=== PATIENT | male | born 1965 | race Caucasian/White ===

== ENCOUNTER 2024-05-25 09:27 | Outpatient (CLI) | payer OTHER, SELFPAY ==
--- NOTE | 2024-05-25 09:32 | US_ITS ---
FINAL REPORT TECHNIQUE: Limited sonographic imaging of the left inguinal region was obtained. CLINICAL HISTORY: LT SIDED PAIN FINDINGS: There is a 2.9 x 1.5 cm abnormality which may represent lymph node versus hernia. IMPRESSION: Lymph node versus hernia in the left inguinal region. Recommend CT for further evaluation. Reviewed, Interpreted and Dictated by Ab Lawson MD Transcribed by Leah James Authenticated and . [facility]
== END 2024-05-25 23:59 | disposition home or self-care (01) ==
LOC: RAD 09:27
PROVIDERS: PCP Family Medicine; Visit Provider Family Medicine
DX: R10.32 Left lower quadrant pain (principal)
CPT/HCPCS: 76882

== ENCOUNTER 2024-06-04 06:51 | Outpatient (CLI) | payer OTHER, SELFPAY ==
--- NOTE | 2024-06-04 07:00 | CT_ITS ---
FINAL REPORT TECHNIQUE: Axial images through the abdomen and pelvis were performed without contrast.This study was performed with techniques to keep radiation doses as low as reasonably achievable, (ALARA). Individualized dose reduction techniques using automated exposure control or adjustment of mA and/or kV according to the patient's size were employed. CLINICAL HISTORY: LT INGUINAL PAIN FINDINGS: ABDOMEN: The lung bases are clear. The heart size is normal. Limited images of the liver are unremarkable. The spleen is normal. No adrenal mass is identified. The aorta is normal in caliber. There is no significant free fluid or adenopathy. There is no nephrolithiasis. There is no hydronephrosis. PELVIS: The appendix is normal. The urinary bladder is unremarkable. There is a left inguinal hernia containing fat. There is no significant free fluid or adenopathy. IMPRESSION: No hydronephrosis or nephrolithiasis. Left inguinal hernia containing fat. Reviewed, Interpreted and Dictated by Casper Winn III, MD Transcribed by Leah James Authenticated and [facility]
== END 2024-06-04 23:59 | disposition home or self-care (01) ==
LOC: RAD 06:51
PROVIDERS: PCP Family Medicine; Visit Provider Family Medicine
DX: R10.32 Left lower quadrant pain (principal)
CPT/HCPCS: 74176

== ENCOUNTER 2024-07-15 11:56 | Outpatient (CLI) | payer OTHER, SELFPAY ==
--- NOTE | 2024-07-15 12:27 | ECG_ITS ---
APPROVED REPORT Exam: Resting ECG HR:67 bpm ECG Measurements Heart Rate 67 AXES MT 156 P 71 QRSd 90 QRS 67 QT 407 T 60 QTc 422 Conclusion SINUS RHYTHM NORMAL ECG UNCONFIRMED REPORT Electronically signed by : Monatna Morales MD 07/16/2024 16:09:22
[2024-07-15 12:36] VITALS: BMI 24.0
[2024-07-15 14:46] LABS: Basophils # 0.1 K/mm3 (0-0.2); Basophils % 0.6 % (0.1-2.0); Eosinophils # 0.3 K/mm3 (0.0-0.4); Eosinophils % 3.4 % (0.1-12.0); Hematocrit 41.8 % (42.0-52.0); Hemoglobin 14.8 g/dL (14.1-18.0); Lymphocytes # 2.6 K/mm3 (0.7-4.5); Lymphocytes % 30.8 % (10-50); Mean Corpuscular HGB Conc 35.5 g/dL (31.8-35.4); Mean Corpuscular Hemoglobin 31.9 pg (27.0-31.2); Mean Corpuscular Volume 90.1 fl (80-94); Mean Platelet Volume 8.3 fl (7.4-10.4); Monocytes # 0.5 K/mm3 (0.1-1.0); Monocytes % 6.1 % (1.7-9.3); Neutrophils % 59.1 % (37.0-80.0); Platelet Count 403 K/mm3 (142-424); Red Blood Count 4.64 M/mm3 (4.60-6.20); Red Cell Distribution Width 12.7 % (11.5-17.5); White Blood Count 8.4 K/mm3 (4.8-10.8)
[2024-07-15 14:56] LABS: Anion Gap 4.3 mEq/L (5-15); Blood Urea Nitrogen 14 mg/dl (9-20); Calcium 9.8 mg/dl (8.4-10.2); Carbon Dioxide 30 mmol/L (22.0-30.0); Chloride 106 mmol/L (98-107); Creatinine Clearance Estimated 100 mL/min (50-200); Estimated Glomerular Filt Rate 87 ml/min (>60); GFR (African American) 105 ML/MIN (>60); Glucose 70 mg/dl (74-100); Potassium 4.3 mmoL/L (3.5-5.1); Sodium 136 mmol/L (136-145)
== END 2024-07-15 23:59 | disposition home or self-care (01) ==
LOC: PREOP 11:57
PROVIDERS: Nurse Anesthetist, Certified Registered; PCP Family Medicine; Visit Provider Surgery
DX: Z01.810 Encounter for preprocedural cardiovascular examination (principal); Z01.812 Encounter for preprocedural laboratory examination
CPT/HCPCS: 80048; 85025; 93005

== ENCOUNTER 2024-07-20 06:03 | Day surgery (SDC) | payer OTHER, SELFPAY ==
[2024-07-15 12:13] VITALS: BMI 24.0
[2024-07-20] VITALS (10 sets, daily range): BP systolic 119–156; BP diastolic 62–87; PULSE 67–97; RESP 15–18; TEMP 36.2–36.7; O2SAT 95–100
[2024-07-20] MEDS: LACTATED RINGERS 1000ML 1,000 ML 25 ML IV (06:27)
--- NOTE | 2024-07-20 07:01 | EXP.ANES.CKL ---
[facility] Disclaimer: The information contained in this section may have been updated after the patient was seen, as this information can be updated by other users. 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 Travel in the last 8 weeks: None household members: family housing: house [facility] Anesthesia Checklist Patient Identification Patient Identification: Arm Band Structural Data Admitted From: Home Planned Operative Procedure/s: Open Left Inguinal Hernia Repair Consent for Planned Operative Procedure(s) Verified: Yes Verified Documents: Surgical Consent and History and Physical NPO Status Verified Time NPO: 00:00 Additional verifications Anesthesia Reactions: No Hx Blood Transfusions: No Blood Transfusion Reaction: No Airway Assessment Mallampati Score:: Class II C-Spine Mobility Assessed: Yes TMJ Mobility Assessed: Yes Dentition: Good Dentition (Pt states that he has a loose upper left cap) Neurological Assessment Level of Consciousness: Awake, Alert and Appropriate Anesthesia Plan Anesthesia Risk discussed: Yes Anesthesia Plan: Verified ASA Class: II Anesthesia Type: General
[2024-07-20] MEDS: CEFAZOLIN SODIUM 2 GM in 0.9 % SODIUM CHLORIDE 100 ML IV (07:10)
[2024-07-20] MEDS: LIDOCAINE 1% 20ML MDV 20 ML (07:30)
[2024-07-20] MEDS: ROPIVACAINE 0.5% 30ML VIAL 150 MG (07:30)
--- NOTE | 2024-07-20 08:58 | P.OP_ITS ---
Date of procedure: 07/20/24 Pre-op Diagnosis:: Left inguinal hernia Post-op Diagnosis:: Same Procedure performed:: Open repair of left inguinal hernia with placement of large size Bard PerFix mesh plug and onlay mesh Surgeon:: Casper Verdugo MD JIG MILL OPERATOR:: Suellen Wolfe Anesthesia: GETA Estimated blood loss (mL): 15 Operative findings:: He had a moderately large indirect hernia. Likely sliding-type. Operative note:: Consent was obtained and patient was taken the operating room. He was given preoperative intravenous antibiotics. In the operating room he was placed in a supine position. General anesthesia was induced. Shaffer catheter was placed. Abdomen and perineum were prepped and draped in the standard surgical fashion. Oblique incision was made in the left inguinal area superior to landmarks identified the inguinal ligament. Dissection was carried down through subcutaneous tissues and Shantelle's fascia using electrocautery. External oblique muscle was cleaned free and opened along the length of its fibers. Exposure was achieved. The underlying ilioinguinal nerve was identified and dissected free and preserved. Cord structures were dissected free from the floor of the inguinal canal and encircled with a Vining drain. Dissection was carried out there was some herniated preperitoneal fat along the cord and this was dissected free from the cord. There was what appeared to be potentially herniated portion of colon essentially as a sliding-type hernia. This was dissected free from the cord carefully. Given the potential sliding nature of the hernia preperitoneal fat and possible bowel were reduced. The defect, lateral to the cord, was repaired with a large size prefix mesh plug anchoring it to the transversalis muscle fascia and the shelving edge of the inguinal ligament with a couple of 2- 0 PDS sutures. The onlay mesh was then secured in position suturing it to Rosalio's ligament and along the shelving edge of the inguinal ligament with a running 2-0 PDS suture. It was secured superior medially to the transversalis muscle fascia with interrupted 2-0 PDS horizontal mattress sutures with a few simple interrupted 2-0 PDS. The 2 tails of the mesh were sutured to 1 another with several 2-0 PDS to reconstruct the internal ring. Cord structures and nerve were returned to the normal anatomic position. Irrigation was performed. Local anesthetic was infiltrated deeply and then for inguinal nerve block. External oblique muscle was closed over the cord structures with 2-0 Vicryl. Shantelle's fascia was closed with running 2-0 Vicryl. Skin was closed with 4-0 Monocryl in a running subcuticular fashion. Steri-Strips and dressings were applied. Condition: stable Disposition: PACU Complications:: None immediately apparent
--- NOTE | 2024-07-20 09:09 | P.PNANES_ITS ---
[facility] Anesthesia Record Part I Anesthesia Record I Intake, IV Amount: 950 Hydration: Adequate Estimated blood loss (mL): 10 Urine output (mL): 100 Blood Products used (#): none Blood Pressure: 134/77 SaO2: 95 Pulse Rate: 97 Airway Patency: Patent Respiratory Rate: 16 Temperature: 97.4 F Patient is:: Awake (Talking) and Stable Stable to PACU at:: 09:10
[2024-07-20 09:31] LABS: Microscopic,Cath URINE MICROSCOPIC (MICROSCOPIC)
[2024-07-20 10:15] LABS: Appearance,Urine/Cath CLEAR (Clear); Bilirubin,Cath Negative (Negative); Blood, Urine/Cath Negative (Negative); Color,Urine/Cath YELLOW (Yellow); Glucose,Urine/Cath (UA) Negative (Negative); Ketones,Urine/Cath Negative (Negative); Leukocyte Esterase,Cath Negative (Negative); Nitrate,Cath Negative (Negative); PH,Urine/Cath 6.5 (5.0-8.5); Protein,Urine/Cath Negative (Negative); Urobilinogen,Cath 0.2 EU/dl (0.2)
[2024-07-20 10:25] LABS: Squamous Epithelial Ur./Cath Occasional #/hpf (0-5); WBC,Urine/Cath Occasional #/hpf (0-3)
--- NOTE | 2024-07-20 13:59 | EXP.ANES.II ---
[facility] Anesthesia Record Part II Anesthesia Record Part II Discharge Time: 09:35 Destination: Surgical Day Care (OP Surgery) PACU nurse assessment reviewed?: Yes Patient Condition:: Good Anesthesia Complications:: None Swallowing reflex intact?: Yes Airway Patency: Patent Cyanosis?: No Blood Pressure: 131/76 SaO2: 100 Respiratory Rate: 15 Pulse Rate: 82 Temperature: 97.4 F Mental Status: Alert & Oriented Pain level:: 0 Nausea and/or vomitting:: None Intake, IV Amount: 950 Hydration: Adequate
== END 2024-07-20 09:58 | disposition home or self-care (01) ==
PROVIDERS: PCP Family Medicine; Visit Provider Surgery
PROC: (CPT 49525; principal; 2024-07-20 07:30)
DX: K40.90 Unilateral inguinal hernia, without obstruction or gangrene, not specified as recurrent (principal)
CPT/HCPCS: 49525; 81001; 96374; J3490; J0690; J1100; J1885; J2250; J2405; J3010; J7120

== ENCOUNTER 2025-01-01 14:33 | Outpatient (CLI) | payer SELFPAY ==
--- NOTE | 2025-01-01 14:36 | CT_ITS ---
APPROVED REPORT Sizing Machine Tender: CLINICAL INDICATION Coronary risk evaluation and stratification TECHNIQUE Image Acquisition: A 128 slice MDCT scanner (Websupporta View) was used for data acquisition. A noncontrast coronary calcium scan was performed. A CT attenuation threshold of 130 Hounsfield units (HU) was used for the detection of calcium in contiguous voxels of 1 sq mm in area to be counted as individual lesions. A tube voltage of 120 KVp was used. The patient received no medications prior to the coronary calcium CT. Image Reconstruction Transaxial images were reconstructed at 0.67 mm slide thickness. Data was reviewed interactively on an advanced workstation capable of 2 and 3-dimensional displays in all conventional reconstruction formats, including multiplanar reformations, maximum intensity projections, curved multiplanar reformations, and volume rendered reconstructions. When applicable, selected routine images describing the relevant coronary anatomy and pathology were saved and sent to PACS. Complications None Technical Quality Overall image quality was good. Total DLP (Dose-Length Product) is 179.9 mGy-cm. The reported value represents the total of one or more individual components during the CT acquisition of this date and at this time, and as such, the same value may appear in more than one CT report depending on the interpreting/reporting physicians. COMPARISON None FINDINGS CT Coronary Calcium Scoring LMA (Left Main Artery) = 6 LAD (Left Anterior Descending) = 213 LCX (Left Coronary Circumflex) = 20 RCA (Right Coronary Artery) = 0 Total Calcium Score = 239 using the AJ-130 method. There is no identifiable calcification in the aortic valve, mitral annulus or mitral valve, pericardium, or myocardium. IMPRESSION -Coronary artery calcification is present. -Total Calcium Score (Agatston Score) = 239 using the AJ-130 method. -The observed calcium score of 239 is at 85th percentile for subjects of the same age, sex, and race/ethnicity. The interpretation of the calcium heart score is based on the following continuum*: 0 = no calcified plaque detected (risk of coronary artery disease is very low ??? less than 5%) 1-10 = calcium detected in extremely minimal levels (risk of coronary diseases is still low ??? less than 10%) 11-100 = mild levels of plaque detected with certainty (mild or minimal narrowing of heart arteries is likely) 101-400 = definite,at least moderate levels of plaque detected (relatively high risk of a heart attack within 3-5 years) >401-999 = extensive levels of plaque detected (high risk of heart attack, high levels of vascular disease are present, high likelihood of at least one significant coronary narrowing) *The calcium heart score quantifies the burden of coronary calcification/plaque in the coronary arteries. The calcium heart score does not evaluate the presence or the burden of non-calcified (i.e. soft) plaque. The coronary and cardiac findings of this Coronary Calcium CT were reviewed, reported, and signed by Daniel Velazquez MD ([employer]). Conclusion Electronically signed by : Kaykay Velazquez MD 01/03/2025 22:13:36
== END 2025-01-01 23:59 | disposition home or self-care (01) ==
LOC: RAD 14:33
PROVIDERS: PCP Family Medicine; Visit Provider Family Medicine
DX: Z13.6 Encounter for screening for cardiovascular disorders (principal)
CPT/HCPCS: 75571

== ENCOUNTER 2025-03-25 11:13 | Outpatient (CLI) | payer OTHER, SELFPAY ==
--- OUTSIDE RECORDS SUMMARY | 2024-12-09 05:30 | XMS_ITS ---
Author Organization [facility] Address [address] [place] [phone] Care Team Providers Care Wraparound Facilitator Name Role Phone Mack Zoran Unavailable [phone] Allergies No Known Allergies REASON FOR VISIT 6 months Social History Tobacco Use: Social History Observation Description Date Details (start date - stop date) Former Smoker NA - NA CURRENT TOBACCO USE: Question Answer Notes Are you a: former smoker quit 30 years ag o Encounters Encounter Location Date Provider Diagnosis [facility] [address] [place] [phone] 12/09/2024 Zoran Giron Plan Of Treatment Next Appt Details Provider Name:Zoran Tabares ry, 06/18/2025 10:45:00 AM, [address], [address], [place], [phone], Progress Notes * KATHARINE RAMSEYDOB: [birth year] (59 yo M)Acc No.[id number]:12/09/2024 Progress Notes Patient: KATHARINE THOMAS Provider: Varsha Giron M.D. :1965 A ge:59 Y S ex:Male Date:12/09/2024 Address:[address] [place], [place] [address] Subjective: * Chief Complaints: * 1 . 6 months. * HPI: C ardiology: 59 year old male presents with c/o Blood Pressure Elevated P t here for 6 mo f/u on hypertension, states he is doing well and does not have any concerns. c/o Hyperlipidemia P t is fasting today. * ROS: D ERMATOLOGY: no R petey. n o H ximena. G ASTROENTEROLOGY: no N ausea. n o V omiting. U ROLOGY: no D ifficulty urinating. n o B lood in urine. * Medical History: A sthma, Hypertension, Hyperlipidemia, Sleep Apnea. * Surgical History: C olonoscopy 2017, Hernia Repair 11/2020, Hernia Repair 2011. * Hospitalization/Major Diagno stic Procedure: D enies Past Hospitalization. * Family History: F ather: alive. M other: . High blood pressure- mother and father Heart disease- mother and father cancer- mother and father. * Social History: C URRENT TOBACCO USE: Yes A re you a: f ormer smoker quit 30 years ago. C affeine: yes, frequency: coffee and tea. Marital Status: . Alcohol: yes, beer and mixed drinks. 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 * Allergies: N .K.D.A. Objective: * Vitals: Assessment: Plan: * Treatment: * Images: Billing Information: * Visit Code: * Procedure Codes: * Electronic signature of Yu Giron MD on 03/25/2025 at 11:16 AM EDT Sign off status: Pending * Provider: Varsha Giron M.D. Date: 0 12/09/2024 Generated for Yudelka medina/Tamara/eTkassandrasmitting on: 0 03/25/2025 11:16 AM EDT History and Physical Notes * HPI (History of Present Illness) Category Sub-Category Detail Notes Category Not es Cardiology Blood Pressure Elevated Pt here for 6 mo f/u on hypertension, states he is doing well and does not have any concerns Hyperlipidemia Pt is fasting today
--- OUTSIDE RECORDS SUMMARY | 2024-12-16 06:45 | XMS_ITS ---
[facility] Address [address] [facility] [address] [place] [phone] Care Team Providers Care Paint Supervisor Name Role Phone Zoran Giron Unavailable [phone] Allergies No Known Allergies Results Component Value Reference Range Notes CT Scan : Coronary w/o contr ast (calcium scoring) Reviewed date:01/26/2025 09:35:53 AM Interpretation:Ca score of 239, 85th percentile Performing Lab: Notes/Report: Ca score of 239, 85th percentile REASON FOR VISIT 6 month check Medications Medication SIG (Take, Route, Frequency, Duration) Notes Start Date End Date Status Atorvastatin Calcium 10 MG 1 tab(s) oral ly once a day; Duration: 90 days Active Enalapril Maleate 10 MG 1 tab(s) orally once a day; Duration: 90 days Active Proventil HFA 108 (90 Base) MCG/ACT 2 puff(s) inhaled every 6 hours Active Social History Tobacco Use: Social History Observation Description Date Details (start date - stop date) Former Smoker NA - NA CURRENT TOBACCO USE: Question Answer Notes Are you a: former smoker quit 30 years ag o Vital Signs Blood pressure systolic 130 mm Hg 12/17/19 25 Blood pressure diastolic 72 mm Hg 025 Heart Rate 67 /min 12/16/2024 Height 71 in 12/16/2024 Weight 186.6 lbs 12/16/2024 BMI 26.02 kg/m2 12/16/2024 Encounters Encounter Location Date Provider [facility] [address] [facility] [address] [place] [phone] 12/16/2024 Zoran Giron Primary hypertension I10 ; Mixed hyperlipidemia E78.2 and Encounter for screening for coronary artery disease Z13.6 Assessments Encounter Date Diagnosis (ICD Code) Assessment Notes Treatment Notes Treatment Clinical Notes Section Notes 12/16/2024 Primary hypertension (ICD-10 - I10) 12/16/2024 Mixed hyperlipidemia (ICD-10 - E78.2) 12/16/2024 Encounter for screening for coronary artery disease (ICD-10 - Z13.6) Plan Of Treatment Medication Medication Name Sig Start Date Stop Date Notes Atorvastatin Calcium 10 MG 1 tab(s) oral ly once a day; Duration: 90 days Enalapril Maleate 10 MG 1 tab(s) orally once a day; Duration: 90 days Next Appt Details Follow Up: 6 Months, Reason: Provider Name:Zoran Tabares ry, 06/18/2025 10:45:00 AM, [address], [address], [place], [place], [phone], Progress Notes * WANDY RAMSEYGROVERDOB: [birth year] (59 yo M)Acc No.[id number]:12/16/2024 Progress Notes Patient: KATHARINE THOMAS Provider: Varsha Giron M.D. :1965 A ge:59 Y S ex:Male Date:12/16/2024 Address:[address] [place], [place] [phone] Subjective: * Chief Complaints: * 1 . 6 month check. * HPI: C ardiology: 59 year old [...] yes, beer and mixed drinks. 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 * Medications: T aking Proventil HFA 108 (90 Base) MCG/ACT Aerosol Solution 2 puff(s) inhaled every 6 hours , Taking Enalapril Maleate 10 MG Tablet 1 tab(s) orally once a day , Taking Atorvastatin Calcium 10 MG Tablet 1 tab(s) orally once a day , Medication List reviewed and reconciled with the patient * Allergies: N .K.D.A. Objective: * Vitals: W t: 186.6, Temp: 98.0, BP: 130/72, HR: 67, Nurse: mehdi, Ht: 71, BMI:26.02. * Examination: G eneral Examination: General Appearance: N AD. H eart: R SR. L ungs:?clear to auscultation. P eripheral pulses: n ormal (2+) bilaterally. E xtremities:?no leg edema. Assessment: * Assessment: 1. P rimary hypertension - I10 (Primary) 2 . M ixed hyperlipidemia - E78.2? 3. E ncounter for screening for coronary artery disease - Z13.6 ? Plan: * Treatment: 2. M ixed hyperlipidemia Refill Atorvastatin Calcium Tablet, 10 MG, 1 tab(s), orally, once a day, 90 days, 90, Refills 1.? 3. E ncounter for screening for coronary artery disease I maging: CT Scan : Coronary w/o contrast (calcium scoring) (Performed Date - 01/01/2025) C a score of 239, 85th percentile * Procedure Codes: 3 075F SYST BP GE 130 - 139MM HG, 3078F DIAST BP < 80 MM HG * Follow Up: 6 Months * Images: Billing Information: * Visit Code: 85633 Office Visit, Est Pt., Level 4. * Procedure Codes: 3075F SYST BP GE 130 - 139MM HG. 3078F DIAST BP < 80 MM HG. * Electronic signature of Yu Giron MD on 03/25/2025 at 11:16 AM EDT Sign off status: Pending * Provider: Varsha Giron M.D. Date: 0 12/16/2024 Generated for Yudelka medina/Tamara/Roshniitting on: 0 03/25/2025 11:16 AM EDT History and Physical Notes * HPI (History of Present Illness) Category Sub-Category Detail Notes Category Not es Cardiology Blood Pressure Elevated Pt here for 6 mo f/u on hypertension, states he is doing well and does not have any concerns Hyperlipidemia Pt is fasting today Examination Category Sub-Category Detail Notes Category Not es General Examination Heart: RSR Lungs: clear to auscultatio n Extremities: no leg edema General Appearance: NAD Peripheral pulses: normal (2+) bilatera lly
--- OUTSIDE RECORDS SUMMARY | 2025-01-26 05:35 | XMS_ITS ---
[facility] [address] [facility] [address] [facility] [address] [place] [phone] Care Team Providers Care Replenishment Merchandising Associate Name Role Phone Zoran Giron Unavailable [phone] Reason For Referral Diagnosis 1 Elevated coronary ar robert calcium score (R93.1) Referral Organization [facility] Referring Provider First Name Zoran Referring Provider Last Name Mack Referring Provider Speciality Family Pra ctice Referred Provider Kaykay Velazquez Referred Provider Specialty Cardiovascul ar Disease General Notes Shanika Patterson 2024 07:46:38 AM > faxed to Dr. Velazquez's office Referral Priority Routine REASON FOR VISIT Test results Encounters Encounter Location Date Provider Diagnosis [facility] [address] [facility] [address] [facility] [address] [place] [phone] 01/26/2025 Zoran Giron Elevated coronary artery calcium score R93.1 Assessments Encounter Date Diagnosis (ICD Code) Assessment Notes Treatment Notes Treatment Clinical Notes Section Notes 01/26/2025 Elevated coronary artery calcium score (ICD-10 - R93.1) Plan Of Treatment Referrals Referral Date Details 02/01/2025 02/01/2025Kaykay Next Appt Details Provider Name:Zoran Tabares ry, 06/18/2025 10:45:00 AM, [address] [facility], [address], [place], [phone], Progress Notes * KATHARINE PETERSDOB: [birth year] (59 yo M)Acc No.[id number]:01/26/2025 Patient: KATHARINE THOMAS :1965 A ge:59 Y S ex:Male Address:[address] [place] [address], [place], [address] Subjective: * Chief Complaints: * T est results * Medical History: * Surgical History: * Hospitalization/Major Diagno stic Procedure: * Medications: Objective: Assessment: * Assessment: 1. E levated coronary artery calcium score - R93.1 (Primary) Plan: * Treatment: * Procedure Codes: * true * Date: Generated for Yudelka medina/Tamara/eTkassandrasmitting on: 0 03/25/2025 11:16 AM EDT Consultation Request Notes Referral Date Referring Provider Referred Provider Not es 02/01/2025 Zoran Giron Yaz
--- NOTE | 2025-03-25 | CA_ITS ---
APPROVED REPORT Exam: Exercise Treadmill Technologist: Jesica Cabrera Ht: 5 ft 10 in Wt: 175 lbs BSA: 1.97 m2 Medical History Medications: Albuterol, atorvastatin, enalapril maleate. Stress Test Details Test: Exercise stress testing was performed using a Palmer protocol. HR Resting HR: 68 bpm Max Heart Rate (APMHR): 162.665114 bpm Max HR Achieved: 153 bpm Target HR (85% APMHR): 137.642604 bpm % of APMHR: 94.44 Recovery HR: 96 bpm BP Resting BP: 152.0/85.0 mmHg Max BP: 204.0/69.0 mmHg Recovery BP: 170.0/82.0 mmHg ECG Resting ECG: NSR with NSSRR Wave abnormalities inferiorly Clinical Highest Stage Achieved: III Stress ECG Conclusion Max HR: 153 Max BP: 204/59 METs: 12.1 Test stopped due to: SOA. Symptoms: None. Arrhythmias/Ectopy: None. ST-T Changes: <1.5mm ST Segment changes with exacerbation of baseline inferior abnormalities. Conclusion: Negative stress for chest pain or arrhythmias. Exacerbation of baseline EKG abnormalities. Electronically signed by : Kaykay Velazquez MD 03/27/2025 00:12:19
--- OUTSIDE RECORDS SUMMARY | 2025-03-25 11:17 | XMS_ITS | Patient Health Record ---
[facility] [address] [place] [phone] Care Team Providers Care Cafeteria Clerk Name Role Phone Zoran Giron Unavailable [phone] Allergies No Known Allergies Results Component Value Reference Range Notes CT Scan : Coronary w/o contr ast (calcium scoring) Reviewed date:01/26/2025 09:35:53 AM Interpretation:Ca score of 239, 85th percentile Performing Lab: Notes/Report: Ca score of 239, 85th percentile CT Scan : Abd & Pelvis w/o c ontrast Reviewed date:06/08/2024 03:22:46 PM Interpretation:Left Inguinal hernia containing fat Performing Lab: Notes/Report: Left Inguinal hernia containing fat Glucose (In-House) Reviewed date:06/12/2024 04:17:46 PM Interpretation:101 Normal Performing Lab: Notes/Report: 101 Normal blood glucose 101 74 - 106 mg/dL Glycohemoglobin A1c (in hous e) Reviewed date:06/12/2024 04:18:01 PM Interpretation:5.2 Normal Performing Lab: Notes/Report: 5.2 Normal glycohemoglobin 5.2% 5 - 6.5 % ultrasound : groin left Reviewed date:05/26/2024 10:10:56 AM Interpretation:lymph node vs hernia, recommend CT Performing Lab: Notes/Report: lymph node vs hernia, recommend CT Reason For Referral Diagnosis 1 Left inguinal hernia (K40.90) Referral Organization [facility] Referring Provider First Name Zoran Referring Provider Last Name Mack Referring Provider Speciality Family Pra ctice Referred Provider VIOLA GAN Referred Provider Specialty General Surg camila General Notes Xiomara Head 024 9:08:22 AM > left message for Adilene PATELXiomara 06/09/2024 9:12:53 AM > Jun 18 at 9:00--pt informed Referral Priority Routine Diagnosis 1 Elevated coronary ar robert calcium score (R93.1) Referral Organization [facility] Referring Provider First Name Zoran Referring Provider Last Name Mack Referring Provider Speciality Family Pra ctice Referred Provider Kaykay Velazquez Referred Provider Specialty Cardiovascul ar Disease General Notes Shanika Patterson 2024 07:46:38 AM > faxed to Dr. Velazquez's office Referral Priority Routine Medications Medication SIG (Take, Route, Frequency, Duration) Notes Start Date End Date Status Atorvastatin Calcium 10 MG 1 tab(s) oral ly once a day; Duration: 90 days Active Enalapril Maleate 10 MG 1 tab(s) orally once a day; Duration: 90 days Active Proventil HFA 108 (90 Base) MCG/ACT 2 puff(s) inhaled every 6 hours Active Immunizations Vaccine Route Administration Date Status Comme nts Fluzone Quad (6months&older) IM Intramuscular 06/10/2024 Administered Social History Tobacco Use: Social History Observation Description Date Details (start date - stop date) Former Smoker NA - NA CURRENT TOBACCO USE: Question Answer Notes Are you a: former smoker quit 30 years ag o Problems Problem Type SNOMED Code ICD Code Onset Dates Problem Status W/U Status Risk Notes Problem Mixed hyperlipidemia (208805591) Mixed hyperlipidemia (E78.2) Active confirmed Problem Mild intermittent asthma (547969152) Mild intermittent asthma without complication (J45.20) Active confirmed Problem Primary hypertension (02763095) Primary hypertension (I10) Active confirmed Vital Signs Heart Rate 67 /min 12/16/2024 Blood pressure diastolic 72 mm Hg 12/16/2024 Height 71 in 12/16/2024 Blood pressure systolic 130 mm Hg 12/16/2024 Weight 186.6 lbs 12/16/2024 BMI 26.02 kg/m2 12/16/2024 Encounters Encounter Location Date Provider Diagnosis [facility] [address] [place] [id number] 05/20/2024 Zoran Giron Left inguinal pain R 10.32 [facility] [address] [place], [place] [id number] 06/10/2024 Zoran [place] Primary hypertension I10 ; Mixed hyperlipidemia E78.2 and IFG (impaired fasting glucose) R73.01 [facility] [address] [place], [place] [id number] 12/16/2024 Zoran [place] Primary hypertension I10 ; Mixed hyperlipidemia E78.2 and Encounter for screening for coronary artery disease Z13.6 [facility] [address] [place], [place] [id number] 05/26/2024 Zoran [place] Left inguinal pain R 10.32 [facility] [address] [place], [place] [id number] 06/02/2024 Zoran [place] [facility] [address] [place], [place] [id number] 06/08/2024 Zoran [place] Left inguinal hernia K40.90 [facility] [address] [facility] [address] [place], [place] [id number] 01/26/2025 Zoran [place] Elevated coronary ar robert calcium score R93.1 Assessments Encounter Date Diagnosis (ICD Code) Assessment Notes Treatment Notes Treatment Clinical Notes Section Notes 05/20/2024 Left inguinal pain (ICD-10 - R10.32) Patient likely has an inguinal hernia 05/26/2024 Left inguinal pain (ICD-10 - R10.32) 06/08/2024 Left inguinal hernia (ICD-10 - K40.90) 06/10/2024 Mixed hyperlipidemia (ICD-10 - E78.2) 06/10/2024 Primary hypertension (ICD-10 - I10) 12/16/2024 Mixed hyperlipidemia (ICD-10 - E78.2) 12/16/2024 Primary hypertension (ICD-10 - I10) 01/26/2025 Elevated coronary artery calcium score (ICD-10 - R93.1) 12/16/2024 Encounter for screening for coronary artery disease (ICD-10 - Z13.6) 06/10/2024 IFG (impaired fasting glucose) (ICD-10 - R73.01) Plan Of Treatment Next Appt Details Provider Name:Zoran Tabares ry, 06/18/2025 10:45:00 AM, [address], [place], [id number], Insurance Providers Payer Name Payer Address Payer Phone Subscriber Number Group Number Insured Name Patient Relationship to Insured Coverage Start Date Coverage End Date [employer] [address] [place] [id number] KATHARINE RAMSEY Self - patient is the insured Medical (General) History Medical History History ICD Code Asthma Hypertension Hyperlipidemia Sleep Apnea Surgical History Surgery Date(Month/Year) Colonoscopy 2017 Hernia Repair 11/2020 Hernia Repair 2011 Hospitalization History Reason Date(Month/Year)
--- NOTE | 2025-03-25 11:30 | NM_ITS ---
APPROVED REPORT Exam: Nuclear Stress Test Indication: cta abnormal Patient Location: Outpatient Stress Tech: Jesica Muñoz [place] Tech:PETROAN [place] RT(R)(N) Ht: 5 ft 10 in Wt: 166 lbs HR: 68 bpm BP: 152/85 mmHg BSA: 1.93 m2 TID: 1.06 BMI: 23.8 History: cta abnormal Procedure: Patient exercised on Palmer protocol 12 minutes and sec, resting heart rate 68 bpm, resting blood pressure 152/85 mmHg, with exercise maximum heart rate achived was 153 bpm which is 94 % of the maximum predicted heart rate and blood pressure was 204/69 mmHg. Test was stopped due to fatigue. Patient denied any complaint of chest pain. Patient has Average exercise capacity, achieved 12.1 METs of workload on treadmill, the blood pressure response to exercise was Exaggerated. Cardiac Stress and Resting SPECT Images: Cardiac Stress and Resting SPECT images were obtained using technetium 99m Myoview 32.3 mCi stress and 10.30 mCi at rest. Resting and stress imaging in supine position demonstrate a large sized, moderate, fixed perfusion defect in the inferior LV wall. This is no longer visualized with prone stress imaging. Findings are suggestive of diaphragmatic attenuation Gated imaging demonstrates normal global and regional LV systolic function. LVEF is calculated at 52%. Conclusion: Diaphragmatic attenuation is present. No evidence of fixed or reversible perfusion defects. Gated imaging demonstrates normal global and regional LV systolic function. LVEF is calculated at 52%. Of note, the patient had a hypertensive BP response at peak stress. BP control is recommended. Electronically signed by : Kaykay Velazquez MD 03/27/2025 00:08:09
[2025-03-25] MEDS: ISOTOPE MYOVIEW (PER STUDY) 1 DOSE IV (14:09)
[2025-03-25] MEDS: SODIUM CHLORIDE 0.9% 10ML SYR (RAD ONLY) 10 ML IV ×2 (14:09)
== END 2025-03-25 23:59 | disposition home or self-care (01) ==
LOC: RAD 11:13
PROVIDERS: PCP Family Medicine; Visit Provider Internal Medicine
DX: R94.31 Abnormal electrocardiogram [ECG] [EKG] (principal); E78.5 Hyperlipidemia, unspecified; I10 Essential (primary) hypertension; R93.1 Abnormal findings on diagnostic imaging of heart and coronary circulation; Z82.49 Family history of ischemic heart disease and other diseases of the circulatory system
CPT/HCPCS: 78452; 93017; 93018; A9502